=== PATIENT | male | born 1975 | race African-American/Black ===

== ENCOUNTER 2021-10-25 17:16 | Emergency (ER) | payer OTHER ==
[~2021-10-25] VITALS: Ht 180.3 cm; Wt 99.3 kg
[2021-10-25 17:30] VITALS: BP 119/73
[2021-10-25 18:01] VITALS: BP 130/83
[2021-10-25 18:31] VITALS: BP 123/77
[2021-10-25 19:01] VITALS: BP 115/76
[2021-10-25 19:18] VITALS: BP 115/76
== END 2021-10-25 19:27 | disposition home or self-care (01) | DRG 556 ==
LOC: ED 17:16
DX: M79.642 Pain in left hand (principal); W21.05XA Struck by basketball, initial encounter; Y93.67 Activity, basketball; Y92.149 Unspecified place in prison as the place of occurrence of the external cause